=== PATIENT | male | born 1960 | race Caucasian/White ===

== ENCOUNTER 2022-08-07 00:08 | Day surgery (SDC) | payer BC, SELFPAY ==
[2022-07-31 13:35] VITALS: BMI 29.6
--- NOTE | 2022-08-04 12:24 | PM.HPGS ---
History of Present Illness History of Present Illness Consent: Risks, benefits, and alternatives have been discussed and questions answered. Patient agrees to proceed with procedure. Chief complaint: neoplasm screening Narrative: Dean Law is a 61 year old male Referred for colon cancer screening. His last colonoscopy was About 10 years ago. Review of Systems Review of Systems: All systems reviewed & are unremarkable except as noted in HPI and below PMFSH Past Medical History Medical History BMI 29.0-29.9,adult Gastroenteritis Postoperative surgical complication involving digestive system Surgical History Surgical History History of hernia repair Family History Family History Grandparent Carcinoma of colon Father Acute myocardial infarction Social History Social History Smoking status: Never smoker Alcohol intake: current Substance use: never Substance use type: does not use Living arrangements: with family Spiritual care concerns: No Meds Home Medications and Allergies Home Medications Medication Instructions Recorded Confirmed Type losartan 25 mg tablet 25 mg PO DAILY 12/02/20 08/07/22 History metoprolol tartrate 25 mg tablet 12.5 mg PO BID 12/02/20 08/07/22 History clopidogrel 75 mg tablet 75 mg PO DAILY 03/10/21 08/07/22 History ibuprofen 800 mg tablet 800 mg PO TID PRN pain #90 tabs 05/03/22 08/07/22 Rx pregabalin 150 mg capsule 300 mg PO BID 30 days #120 caps 05/15/22 08/07/22 Rx alirocumab 150 mg/mL subcutaneous 150 mg subcut [id number] 07/31/22 08/07/22 History pen injector (Praluent Pen) Allergies Allergy/AdvReac Type Severity Reaction Status Date / Time Ypewgrt-JJZ-BvI Reductase AdvReac Intermediate Elevated CK Verified 08/07/22 06:50 Inhibitor [Wnlzpgn-Jrq-Bjd Reductase Inhibitor] Exam Resp: Auscultation: clear to auscultation bilaterally Cardio: Rate: regular rate Rhythm: regular rhythm GI: GI Palp: Yes Soft to palpation and No Tenderness to palpation present (GI) Assessment and Plan Assessment and plan (1) Screening for colon cancer: Code(s): Z12.11 - Encounter for screening for malignant neoplasm of colon Status: Acute
[2022-08-07 06:52] VITALS: BP 123/83; PULSE 44; RESP 18; TEMP 36.1; O2SAT 100; BMI 30.2
[2022-08-07] MEDS: LACTATED RINGERS 1,000 ML 150 ML IV CONT (07:12)
--- NOTE | 2022-08-07 07:34 | WPDANESEPPF ---
Anes - Initial Pre Proc Eval Procedure: Operation Date: 08/07/22 08:00 Proposed Procedures p Screening Colonoscopy - Reggie Green MD Date/Time: 08/07/22 07:34 Surgeon: Reggie Green MD Pre Op Diagnosis: neoplasm screening Patient Data Age: 61 Gender: M Height: 1.75 m Weight: 92.8 kg Last Vital Signs Temp 97.0 F L 08/07/22 06:52 Pulse 44 L 08/07/22 06:52 Resp 18 08/07/22 06:52 BP 123/83 08/07/22 06:52 Pulse Ox 100 08/07/22 06:52 O2 Del Method Room Air 08/07/22 06:52 Allergies Allergy/AdvReac Type Severity Reaction Status Date / Time Rxterba-ZDV-FxX Reductase AdvReac Intermediate Elevated CK Verified 08/07/22 06:50 Inhibitor [Iwnkfer-Vym-Nct Reductase Inhibitor] Home Medications Medication Instructions Recorded Confirmed Type losartan 25 mg tablet 25 mg PO DAILY 12/02/20 08/07/22 History metoprolol tartrate 25 mg tablet 12.5 mg PO BID 12/02/20 08/07/22 History clopidogrel 75 mg tablet 75 mg PO DAILY 03/10/21 08/07/22 History ibuprofen 800 mg tablet 800 mg PO TID PRN pain #90 tabs 05/03/22 08/07/22 Rx pregabalin 150 mg capsule 300 mg PO BID 30 days #120 caps 05/15/22 08/07/22 Rx alirocumab 150 mg/mL subcutaneous 150 mg subcut [id number] 07/31/22 08/07/22 History pen injector (Praluent Pen) Patient hx anesthesia problems: none Family hx anesthesia problems: none Results Review: All pre-operative results and documents have been reviewed as part of the pre-operative evaluation. [facility] Past Medical History Medical History BMI 29.0-29.9,adult Gastroenteritis Postoperative surgical complication involving digestive system Surgical History Surgical History History of hernia repair Family History Family History Grandparent Carcinoma of colon Father Acute myocardial infarction Social History Social History Smoking status: Never smoker Alcohol intake: current Substance use: never Substance use type: does not use Living arrangements: with family Spiritual care concerns: No Anes - Eval Final PreProcedure Day of Procedure 08/07/22 07:34 Patient weight: obese Heart: regular rate and rhythm Lungs: clear to auscultation Airway: Mallampati scale class II Neurological: alert and oriented Last oral intake: >/= 8 hours ASA classification: III Emergent: no Anesthetic plan: proceed Anesthesia type and monitoring: general GIVS and standard monitoring Results Review: All pre-operative results and documents have been reviewed as part of the pre-operative evaluation. Informed Consent: The patient's anesthetic plan and its attendant risks and benefits were discussed with the patient/family/POA. Questions were solicited and answers provided to the satisfaction of the patient/family/POA.
[2022-08-07 08:13] VITALS: BP 89/44; PULSE 44; RESP 18; O2SAT 100
[2022-08-07 08:23] VITALS: BP 96/55; PULSE 45; RESP 18; O2SAT 100
[2022-08-07 08:33] VITALS: BP 108/60; PULSE 50; RESP 18; O2SAT 100
== END 2022-08-07 08:43 | disposition home or self-care (01) ==
PROVIDERS: PCP Family Medicine; Visit Provider Internal Medicine Gastroenterology
PROC: 0DJD8ZZ Inspection of Lower Intestinal Tract, Via Natural or Artificial Opening Endoscopic (ICD-10-PCS; CPT 45378; principal; 2022-08-07 08:00)
DX: Z12.11 Encounter for screening for malignant neoplasm of colon (principal); E66.9 Obesity, unspecified; Z68.30 Body mass index [BMI] 30.0-30.9, adult
CPT/HCPCS: 45378; J2704; J7120

== ENCOUNTER 2024-10-21 14:30 | Outpatient (CLI) | payer BC, SELFPAY ==
--- NOTE | ~2024-10-21 | XR_ITS ---
XR chest 2V 10/21/2024 14:51 Indication: Dyspnea Procedure: 2 view chest Comparison: 08/05/2013 Findings: Focal nodular opacity left lower thorax. Heart size normal. Right lung clear. No focal pneu monia, pleural effusion or pneumothorax. Spinal stimulator leads are noted. Impression: 1: Focal nodular opacity left lower thorax. Correlation with CT chest recommended to exclude parenchy mal nodule. Reviewed, dictated and finalized at location B. ITECTURE DRAFTER Impression: 1: Focal nodular opacity left lower thorax. Correlation with CT chest recommend ed to exclude parenchymal nodule.
== END 2024-10-21 14:31 | disposition home or self-care (01) ==
LOC: GOSHIMG 14:31
PROVIDERS: PCP Nurse Practitioner Adult Health; Visit Provider Nurse Practitioner Adult Health
DX: R91.1 Solitary pulmonary nodule (principal); R09.89 Other specified symptoms and signs involving the circulatory and respiratory systems
CPT/HCPCS: 71046

== ENCOUNTER 2024-11-11 09:21 | Outpatient (CLI) | payer BC, SELFPAY ==
--- NOTE | ~2024-11-11 | CT_ITS ---
CT Scan of the Chest without Contrast: Clinical Indication: Abnormal chest x-ray, possible left basilar pulmonary nodule Technique: Contiguous sections were acquired throughout the chest without intravenous contrast. Dose reduction technique was used on this scan by utilizing automated exposure control and iterative recon struction technique. The dose-length product (DLP) was 380.26 mGy-cm. Findings: There is no evidence of any significant mediastinal, hilar or axillary lymphadenopathy. There are ext ensive atherosclerotic calcifications of the coronary arteries. There is no evidence of pleural or pericardial effusion. Calcified left lower lobe granuloma present. Lungs are otherwise clear. Images through the upper abdomen reveal no abnormalities. Impression: Calcified left lower lobe granuloma, otherwise clear lungs. Reviewed, dictated and finalized at location . TION SPECIALIST Impression: Calcified left lower lobe granuloma, otherwise clear lungs.
--- OUTSIDE RECORDS SUMMARY | 2024-11-11 09:47 | XMS_ITS | Clinical Summary ---
Author Organization [facility] al Address [address] [place] [address] Care Team Providers Care Link Fabric Machine Operator Name Role Phone Drake Persaud MD Primary Care Provider + [phone] Allergies No known active allergies Medications ibuprofen (ADVIL,MOTRIN) 200 mg tab/cap Take 2 tablet/capsule (400 mg total) by mouth every 8 (eight) hours as needed for pain Active pregabalin (LYRICA) 150 mg capsuleIndicati ons:neuropathic pain Take 2 capsules (300 mg total) by mouth 2 (two) times a day 120 capsule 1 Active ezetimibe (ZETIA) 10 mg tablet Take 1 tablet (10 mg total) by mouth daily Active Praluent Pen 150 mg/mL pen injector INJECT 150MG(1 PEN) UNDER THE SKIN EVERY 14 DAYS 6 mL 1 3 Active Additional Information Patient not taking.Reported on 04/11/2023 inclisiran (LEQVIO) 284 mg/1.5 mL syringe Inject 1.5 mL (284 mg total) under the skin every 6 (six) months Active losartan (COZAAR) 25 mg tablet TAKE 1 TABLET(25 MG) BY MOUTH DAILY 90 tablet 3 4 Active metoprolol tartrate (LOPRESSOR) 25 mg immediate release tablet TAKE 1/2 TABLET(12.5 MG) BY MOUTH TWICE DAILY 90 tablet 3 4 Active Active Problems Problem Noted Date Diagnosed Date Other hyperlipidemia 04/11/2023 CAD (coronary artery disease) 03/03/2021 Chronic prescription opiate use 09/26/2019 Inguinal pain 04/13/2015 Neuralgia 02/02/2014 Ilioinguinal neuralgia 02/02/2014 Chronic pain 02/02/2014 Abdominal pain 11/27/2013 Never smoked tobacco 07/27/2010 Abdominal hernia 05/16/2010 STEMI (ST elevation myocardial infarction) Encounters Date Type Department Care Team Description 10/29/2024 11:45 AM GLOBAL SAFETY OFFICER Office Visit [place] [employer] [address] [place] [phone] Yuki Segura MD Coronary artery disease involving [place] coronary artery of [place] heart, unspecified whether angina present (Primary Dx); ST elevation myocardial infarction (STEMI), unspecified artery (HCC); Dyslipidemia 09/15/2024 Telephone [place] [employer] [facility] [address] [place] [phone] Savanah Mcgraw MA from Last 3 Months Surgical History Surgery Date Site/Laterality Comments NH UNLISTED PROCEDURE ABDOMEN PERITONEUM & OMENTUM Hernia Repair - (Added by TW Conv) HERNIA MESH REMOVAL 10/15/2009 - 10/14/2010 ABDOMINAL SURGERY 10/15/2011 - 10/14/2012 abd pain nerve SPINAL CORD STIMULATOR IMPLANT Medical History Medical History Date Comments Hyperlipidemia Chronic pain Groin pain CAD (coronary artery disease) Family History Medical History Relation Name Comments Colon cancer Nephew Relation Name Status Comments Nephew Other Age 38 Social History Tobacco Use Types Packs/Day Years Used Date Smoking Tobacco: Never Smokeless Tobacco: Never Tobacco Cessation:Counseling Given: Not Answered Alcohol Use Standard Drinks/Week Comments No 0 (1 standard drink = 0.6 oz pur e alcohol) Sex and Gender Information Value Date Recorded Sex Assigned at Not on file Legal Sex Male 9:50 PM GLOBAL SAFETY OFFICER Gender Identity Not on file Sexual Orientation Not on file Obstetrics History Last Filed Vital Signs Vital Sign Reading Time Taken Comments Blood Pressure 114/62 10/29/2024 11:11 AM GLOBAL SAFETY OFFICER Pulse 59 10/29/2024 11:11 AM GLOBAL SAFETY OFFICER Temperature 36.9 ??C (98.4 ??F) 04/06/2021 12:07 PM C DT Respiratory Rate 16 10/29/2024 11:11 AM GLOBAL SAFETY OFFICER Oxygen Saturation 96% 10/29/2024 11:11 AM GLOBAL SAFETY OFFICER Inhaled Oxygen Concentration - - Weight 97.5 kg (215 lb) 10/29/2024 11:11 AM GLOBAL SAFETY OFFICER Height 175.3 cm (5' 9 ) 10/24/2023 9:38 AM GLOBAL SAFETY OFFICER Body Mass Index 31.75 10/24/2023 9:38 AM GLOBAL SAFETY OFFICER Plan of Treatment Health Maintenance Due Date Last Done Comments Colon Cancer Screening-Colonoscopy 1960 Depression Screening 1960 Hepatitis C Screening 1960 Prostate Cancer Screening-PSA 1960 DTaP/Tdap/Td Vaccine (1 - Tdap) 12/16/1971 Hepatitis B Screening 1978 Regular Well Visit/Exam 18-64 1978 Zoster Vaccine (1 of 2) 2010 Influenza Vaccine (#1) 2024 5, 07/08/2014, 07/02/2013 Pneumococcal vaccine <65 Aged Out No longer eligible based on patient's age to complete this topic Goals Goal Patient Goal Type Associated Problems Recent Progress Patient-Stated? Author CCM Chronic Pain Care Plan Chronic Care Management No change(05/21 12:34 PM CDT) No Annie Choi, [place] Note: Problem: Chronic Pain Goals: 1. Minimize further functional decline 2. Maximize quality of life 3. Control pain Strategies: - Activity/exercise program recommendation - Conservative stepwise pain medicine strategy with multi-disciplinary approach - Recommend healthy lifestyle strategies and compensatory methods as needed Medical Devices Implanted Type Area Lead Designer Device Identifier Shelf Expiration Date Model / Serial / Lot Orthofix Spinal Implants [id number] Hallmark 4.1mm 16mm Primary Constrain Color Coded Spine Cervical - [id number] - [id number] Implanted:Qty: 1 on 09/19/2018 by Marvel Garzon MD at [facility] N/A: Back Orthofix Spinal Implants 08/26/2020 [id number] / [id number] / [id number] Generator Implantable Pulse Wavewriter Ipg - [id number] - [id number] Implanted:Qty: 1 on 09/19/2018 by Marvel Garzon MD at [facility] N/A: Back [employer] [id number] / [id number] / Medtronic Usa [employer] X [id number] Resolute [place] 3mm 2.1-2.7fr 26mm 140cm Rapid Exchange Radiopaque - [id number] Implanted:Qty: 1 on 11/26/2020 by Yuki Segura MD at [facility] Medtronic Inc [id number] / / Daig Fabio [id number] Device Closure Angio-Seal Vip Bondek-Plus Polyglyd L70 Cm Od6 Fr Odsec.035 In Vascular - [id number] Implanted:Qty: 1 on 11/26/2020 by Yuki Segura MD at [facility] [employer] [id number] / / Implanted - Out of Service Type Area Lead Designer Device Identifier Shelf Expi ration Date Model / Serial / Lot Scs Back Procedures Procedure Name Priority Date/Time Associated Diagnosis Comments ECG 12-LEAD Routine 10/29/2024 11:[address]LOBAL SAFETY OFFICER [address] elevation myocardial infarction (STEMI), unspecified artery (HCC) from Last 3 Months Results * ECG 12 lead (10/29/2024 11:11 AM GLOBAL SAFETY OFFICER) Yuki Segura MD ECG ORDERABLES Final Result from Last 3 Months Insurance MARIOLA PREFERRED ANTHEM ACCESS Advance Directives For more information, please contact: [phone] * Full Code (Latest Code Status on File) Date Activated Date Inactivated Comments 11/27/2020 10:26 AM 11/28/2020 3:14 PM * Comfort Care Only - DO NOT Resuscitate Date Activated Date Inactivated Comments 11/27/2020 9:25 AM 11/27/2020 10:26 AM * Full Code Date Activated Date Inactivated Comments 11/26/2020 2:57 PM 11/27/2020 9:25 AM Healthcare Agents on File Name Relationship Healthcare Agent Relationshi p Communication Milena Kim Other First Alternate Health Care Agent Care Teams Link Fabric Machine Operator Relationship Specialty Start Date End Date Drake Persaud MD PCP - General 01/15/17
--- OUTSIDE RECORDS SUMMARY | 2024-11-11 09:47 | XMS_ITS | Continuity of Care Document ---
Author Organization [facility] Address [address] [place] [address] [place] [address] Phone Care Team Providers Care Hardness Tester Name Role Phone John Mitchell Unavailable Unavailable Procedures Procedure Date Office Consultation Advance Directives Directive Yes / No Effective Date File Name No Information Encounters Encounter Description Practice Location Reason(s) For Visit Diagnoses Date Provider Providers Copied on Encounter Office Consultation [facility], [address], [place], [place], [id number], [place] tel:[phone] [facility] No Information [address] [place], [address], [place]. tel:[phone] Referring Provider: Drake Persaud MD , [address] [place] [address], [facility]. tel:[phone] Family History Family Member Type Diagnosis Age At Onset No Information Payers Payer name Insurance type Covered libertarian ID Authorirama jessicamanuela(s) [facility] [id number] Social History Type Description Quantity Date Captured Comments Sex Male Smoking Status No Information Chief Complaint And Reason For Visit No Information Reason For Referral Reason For Referral No Information History Of Present Illness Encounter Date Complaint History Of Prese nt Illness No Information Functional Status Date Functional Assessmen t No Information Instructions Date Instruction Additional Infor mation No Information Assessments Type Assessment Date No Information Patient Care Teams Name Effective Dates (start - stop) Status Members No Information
--- OUTSIDE RECORDS SUMMARY | 2024-11-11 09:47 | XMS_ITS | Referral Summary ---
Author Organization [facility] al Address [address] [place] [address] Care Team Providers Care Sales Property Manager Name Role Phone Drake Persaud MD Primary Care Provider + [phone] Encounters Date Type Department Care Team Description 10/29/2024 11:45 AM GLASS FORMING ENGINEER Office Visit [employer] [address] [place] [phone] Yuki Segura MD Coronary artery disease involving [place] coronary artery of [place] heart, unspecified whether angina present (Primary Dx); ST elevation myocardial infarction (STEMI), unspecified artery (HCC); Dyslipidemia 09/15/2024 Telephone [employer] [address] [place] [phone] Savanah Mcgraw MA from Last 3 Months Allergies No known active allergies Medications ibuprofen [...] hernia 05/16/2010 STEMI (ST elevation myocardial infarction) Social History Tobacco Use Types Packs/Day Years Used Date Smoking Tobacco: Never Smokeless Tobacco: Never Tobacco Cessation:Counseling Given: Not Answered Alcohol Use Standard Drinks/Week Comments No 0 (1 standard drink = 0.6 oz pur e alcohol) Sex and Gender Information Value Date Recorded Sex Assigned at Not on file Legal Sex Male 9:50 PM GLASS FORMING ENGINEER Gender Identity Not on file Sexual Orientation Not on file Last Filed Vital Signs Vital Sign Reading Time Taken Comments Blood Pressure 114/62 10/29/2024 11:11 AM GLASS FORMING ENGINEER Pulse 59 10/29/2024 11:11 AM GLASS FORMING ENGINEER Temperature 36.9 ??C (98.4 ??F) 04/06/2021 12:07 PM C DT Respiratory Rate 16 10/29/2024 11:11 AM GLASS FORMING ENGINEER Oxygen Saturation 96% 10/29/2024 11:11 AM GLASS FORMING ENGINEER Inhaled Oxygen Concentration - - Weight 97.5 kg (215 lb) 10/29/2024 11:11 AM GLASS FORMING ENGINEER Height 175.3 cm (5' 9 ) 10/24/2023 9:38 AM GLASS FORMING ENGINEER Body Mass Index 31.75 10/24/2023 9:38 AM GLASS FORMING ENGINEER Plan of Treatment Not on file Goals Goal Patient Goal Type Associated Problems Recent Progress Patient-Stated? Author CCM Chronic Pain Care Plan Chronic Care Management No change(05/21 12:34 PM CDT) No Annie Choi, RN Note: Problem: Chronic Pain Goals: 1. Minimize further functional decline 2. Maximize quality of life 3. Control pain Strategies: - Activity/exercise program recommendation - Conservative stepwise pain medicine strategy with multi-disciplinary approach - Recommend healthy lifestyle strategies and compensatory methods as needed Medical Devices Implanted Type Area Prison Psychiatrist Device Identifier Shelf Expiration Date Model / Serial / Lot Orthofix Spinal Implants [id number] Hallmark 4.1mm 16mm Primary Constrain Color Coded Spine Cervical - [id number] - [id number] Implanted:Qty: 1 on 09/19/2018 by Marvel Garzon MD at [facility] N/A: Back Orthofix Spinal Implants 08/26/2020 [id number] / [id number] / [id number] Generator Implantable Pulse Wavewriter Ipg - [id number] - [id number] Implanted:Qty: 1 on 09/19/2018 by Marvel Garzon MD at [facility] N/A: Back [employer] [id number] / [id number] / Medtronic Usa Inc X [id number] Resolute [place] 3mm 2.1-2.7fr 26mm 140cm Rapid Exchange Radiopaque - [id number] Implanted:Qty: 1 on 11/26/2020 by Yuki Segura MD at [facility] Medtronic Inc [id number] / / Daig Fabio [id number] Device Closure Angio-Seal Vip Bondek-Plus Polyglyd L70 Cm Od6 Fr Odsec.035 In Vascular - [id number] Implanted:Qty: 1 on 11/26/2020 by Yuki Segura MD at [facility] [employer] [id number] / / Implanted - Out of Service Type Area Prison Psychiatrist Device Identifier Shelf Expi ration Date Model / Serial / Lot Scs Back Procedures Procedure Name Priority Date/Time Associated Diagnosis Comments ECG 12-LEAD Routine 10/29/2024 11:[address] elevation myocardial infarction (STEMI), unspecified artery (HCC) from Last 3 Months Results * ECG 12 lead (10/29/2024 11:11 AM GLASS FORMING ENGINEER) Yuki Segura MD ECG ORDERABLES Final Result from Last 3 Months Insurance ANTH PREFERRED ANTH ACCESS Advance Directives For more information, please contact: [phone] * Full Code (Latest Code Status on [...] First Alternate Health Care Agent Care Teams Sales Property Manager Relationship Specialty Start Date End Date Drake Persaud MD PCP - General 01/15/17
--- OUTSIDE RECORDS SUMMARY | 2024-11-11 09:47 | XMS_ITS | Encounter Summary ---
Author Organization [facility] Healthcare Address [address] [place] [address] Care Team Providers Care Jigger Operator Name Role Phone Drake Persaud MD Primary Care Provider + [phone] Reason for Visit * Reason Onset Date Comments Med Refill 11/25/2019 Encounter Details Date Type Department Care Team (Late st Contact Info) Description 11/25/2019 Telephone [facility] [place] [facility] [address] [facility] [address] [place] [address] Marvel Garzon MD [address] [place] [address], [place] [phone] Med Refill Social History Tobacco Use Types Packs/Day Years Used Date Smoking Tobacco: Never Smokeless Tobacco: Never Alcohol Use Standard Drinks/Week Comments No 0 (1 standard drink = 0.6 oz pur e alcohol) Sex and Gender Information Value Date Recorded Sex Assigned at Not on file Legal Sex Male 9:50 PM INSPECTOR [employer] Gender Identity Not on file Sexual Orientation Not on file documented as of this encounter Plan of Treatment Not on file documented as of this encounter Goals Goal Patient Goal Type Associated Problems Recent Progress Patient-Stated? Author CCM Chronic Pain Care Plan Chronic Care Management No change(05/21 12:34 PM CDT) No Annie Choi RN Note: Problem: Chronic Pain Goals: 1. Minimize further functional decline 2. Maximize quality of life 3. Control pain Strategies: - Activity/exercise program recommendation - Conservative stepwise pain medicine strategy with multi-disciplinary approach - Recommend healthy lifestyle strategies and compensatory methods as needed documented as of this encounter Visit Diagnoses Not on filedocumented in this encounter Care Teams Jigger Operator Relationship Specialty Start Date End Date Drake Persaud MD PCP - General 01/15/17 documented as of this encounter
== END 2024-11-11 09:22 | disposition home or self-care (01) ==
PROVIDERS: PCP Nurse Practitioner Adult Health; Visit Provider Nurse Practitioner Family
DX: R93.89 Abnormal findings on diagnostic imaging of other specified body structures (principal); J98.4 Other disorders of lung
CPT/HCPCS: 71250

== ENCOUNTER 2024-11-30 15:23 | Emergency (ER) | payer BC, SELFPAY ==
--- NOTE | ~2024-11-30 | XR_ITS ---
EXAMINATION: XR chest 2V DATE: 11/30/2024 15:46 INDICATION: Cough, wheezing and blood in sputum TECHNIQUE: frontal and lateral views of the chest were obtained. COMPARISON: 10/21/[address] dated 11/03/2024 FINDINGS: Unchanged nodular opacity left lung base which correspond to a curved band of discoid atelectasis/sca rring in the lingula on the CT imaging. Lungs remain otherwise clear with no other airspace opacities , pulmonary edema, pleural effusion or pneumothorax. The cardiomediastinal silhouette is normal. Ther e are a pair of spinal stimulator leads project over the posterior aspect of the central canal the lo wer thoracic spine. IMPRESSION: 1. No acute cardiopulmonary disease. Reviewed, dictated and finalized at location [facility]
--- NOTE | 2024-11-30 15:24 | ED.URI ---
HPI - URI/Sore Throat General Chief Complaint: Upper Respiratory Infection Stated Complaint: Cough Time Seen by Provider: 11/30/24 15:24 Source: patient Mode of arrival: ambulatory Limitations: no limitations History of Present Illness HPI Narrative: Dean is a 63-year-old male patient presenting to the clinic today with complaints of cough, nasal congestion, and chest congestion x1 day. He reports he is coughing up mucus with some streaks of blood. States he had a low-grade fever. He does report he feels short of breath. No history of smoking. Denies any chest pain. History of diabetes, STEMI, CAD, hyperlipidemia. MD elicited complaint: sore throat and nasal congestion Related Data Home Medications ?Medication ?Instructions ?Recorded ?Confirmed ?Last Taken ?Type losartan 25 mg tablet 25 mg PO DAILY 12/02/20 11/30/24 Unknown History metoprolol tartrate 25 mg tablet 12.5 mg PO BID 12/02/20 11/30/24 Unknown History Allergies Allergy/AdvReac Type Severity Reaction Status Date / Time [id number] Reductase AdvReac Intermediate Elevated CK Verified 11/30/24 15:30 Inhibitor (Kyvruqk-Pen-Dyq Reductase Inhibitor) Review of Systems Review of Systems: Pertinent positives per HPI. Patient denies any fever, chills, rash, headache, visual changes, dizziness, chest pain, palpitations, nausea, vomiting, diarrhea, constipation, abdominal pain, or any urinary issues. [facility] Past Medical History Medical History Bronchitis Bibasilar crackles Diabetes mellitus Coronary artery disease Sinusitis STEMI (ST elevation myocardial infarction) Gastroenteritis Postoperative surgical complication involving digestive system Hyperlipidemia Surgical History Surgical History History of hernia repair Family History Family History Grandparent Carcinoma of colon Father Acute myocardial infarction Social History Social History Smoking status: Never smoker Alcohol intake: current Substance use: never Substance use type: does not use Do You Feel Safe in your Home?: Yes Lack of Transportation: No Lack of Food: Never True Current Housing: I Have Housing Concerned About Future Housing: No Difficulty Paying Gas/Electric Bills: No Difficulty Paying for Meds: No Currently Unemployed: No Difficulty w/ Childcare or Family Care: No Living arrangements: with family Spiritual care concerns: No Comments At the time of my signature, I reviewed and agree with the nursing past medical, surgical, social, and family history. There is no relevant family history pertinent to the patient complaint. Exam Narrative: General: Well-developed, well nourished, in no apparent distress Head: Normocephalic, atraumatic Eyes: Pupils equally round and reactive to light bilaterally, EOM intact, sclera and conjunctive clear, no discharge, lids normal Ears: TMs intact and clear, ear canals clear, no drainage, grossly hearing normal. Nose: Nares patent, clear nasal discharge, no inflammation, no sinus tenderness. Mouth: Oral pharynx without lesions or masses, good dentition, MMM. Neck: Supple, trachea midline, no enlargement of anterior or posterior cervical nodes, no thyroid masses or goiter palpable. Cardio: Regular rate and rhythm, s1 and s2 normal, no murmur appreciated. Resp: Wheezing over the left upper lobe posteriorly, no rhonchi, rales, or rubs Course Course Emergency Course: Portions of this record may have been created with voice recognition software. Level of Care: Express Care Visit Vital Signs Vital signs: Vital Signs Temperature 37.7 C H 11/30/24 15:36 Pulse Rate 80 11/30/24 15:36 Respiratory Rate 16 11/30/24 15:36 Blood Pressure 136/86 11/30/24 15:36 Pulse Oximetry 97 11/30/24 15:36 Temperature 37.7 C H 11/30/24 15:36 Pulse Rate 80 11/30/24 15:36 Respiratory Rate 16 11/30/24 15:36 Blood Pressure 136/86 11/30/24 15:36 Pulse Oximetry 97 11/30/24 15:36 Vital signs reviewed MDM - URI/Sore Throat MDM Narrative Medical decision making narrative: At the time of visit patient is resting comfortably on the exam table. Patient appears to be nontoxic. Labs: COVID and influenza testing was negative. Diagnostics: Chest x-rays negative for any acute cardiopulmonary process. Plan: I suspect patient has bronchitis. Prescription for azithromycin and albuterol inhaler was sent to the pharmacy. Supportive measures were discussed with the patient and they voiced understanding discharge instructions and agrees to treatment plan. Return precautions reviewed Differential Diagnosis Differential diagnosis: Likely upper respiratory infection, otitis media, sinusitis, viral infection, bronchitis, influenza, pharyngitis and other (COVID) Lab Data Labs: Lab Results 11/30/24 Range/Units 15:57 POC Influenza A Ag Negative (Negative) POC Influenza B Ag Negative (Negative) POC SARS CoV-2 Ag Negative (Negative) Discharge Plan Discharge Clinical Impression: Bronchitis Patient Disposition: Home, Self-Care Condition: Stable Instructions: Antibiotic Form, Acute Bronchitis (ED) Additional Instructions: Chest x-ray is negative for any acute cardiopulmonary process. COVID and influenza testing negative in the clinic today. Take prescription medications only as prescribed-albuterol inhaler and azithromycin Increase fluids and stay well hydrated Tylenol/motrin for pain/fever Flonase and OTC antihistamines as directed Vicks vapor rub to open sinuses Sinus rinses for congestion Cepacol spray, cough drops, throat lozenges, warm tea with honey/lemon, gargle salt water to soothe throat BRAT diet for diarrhea Clear liquids x 24 hours then advance as tolerated for nausea/vomiting Go to the ED if you develop a worsening in your condition- high fever not controlled by Tylenol or Motrin, dehydration, weakness, lethargy, shortness of breath, or chest pain. Follow up with your PCP in 3-5 days if symptoms persist. Patient Language: Setswana Prescriptions: New azithromycin 250 mg tablet See Rx Instructions .ROUTE .COMPLEX Qty: 6 0RF Rx Instructions: For 250 mg dose pack: take 500 mg today (day 1), then 250 mg for 4 days (days 2-5) albuterol sulfate 90 mcg/actuation HFA aerosol inhaler 2 puff inhalation Q4-6H PRN (Reason: shortness of breath or wheezing) 30 Days Qty: 8.5 0RF No Action losartan 25 mg tablet 25 mg PO DAILY metoprolol tartrate 25 mg tablet 12.5 mg PO BID aspirin 81 mg tablet,delayed release (DR/EC) 81 mg PO DAILY Qty: 1 0RF Rx Instructions: cardio manages dapagliflozin propanediol 10 mg tablet 10 mg PO DAILY Qty: 30 6RF pregabalin 150 mg capsule 300 mg PO BID 30 Days Qty: 120 3RF Repatha SureClick 140 mg/mL pen injector 140 mg subcut .q2wk Qty: 2 0RF ibuprofen 800 mg tablet See Rx Instructions .ROUTE .COMPLEX Qty: 90 0RF Dose Instruction: TAKE 1 TABLET BY MOUTH THREE TIMES DAILY NEEDED FOR PAIN Rx Instructions: TAKE 1 TABLET BY MOUTH THREE TIMES DAILY NEEDED FOR PAIN Follow-up/Referrals: Drake Persaud MD [Primary Care Provider] - Time of Disposition: 16:15 Quality NIHSS Nursing Documentation ED NIHSS nursing documentation: reviewed/agree
[2024-11-30 15:36] VITALS: BP 136/86; PULSE 80; RESP 16; TEMP 37.7; O2SAT 97
[2024-11-30 15:59] LABS: EDCOVIDSCREEN Negative (Negative); EDINFLUASCREEN Negative (Negative); EDINFLUBSCREEN Negative (Negative)
== END 2024-11-30 16:20 | disposition home or self-care (01) ==
PROVIDERS: Emergency Provider Nurse Practitioner Family; PCP Family Medicine
DX: J40 Bronchitis, not specified as acute or chronic (principal); Z20.822 Contact with and (suspected) exposure to COVID-19; I25.10 Atherosclerotic heart disease of native coronary artery without angina pectoris; E11.9 Type 2 diabetes mellitus without complications; Z79.84 Long term (current) use of oral hypoglycemic drugs; I25.2 Old myocardial infarction; E78.5 Hyperlipidemia, unspecified; Z79.82 Long term (current) use of aspirin
CPT/HCPCS: 71046; 87426; 87804; 99213; G0463

== ENCOUNTER 2025-06-04 09:51 | Outpatient (CLI) | payer BC, SELFPAY ==
--- NOTE | ~2025-06-04 | XR_ITS ---
Left Knee Technique: AP, lateral, and sunrise views were obtained. Clinical History: Pain Findings: No fracture or dislocation is seen. Osseous alignment is anatomic. Joint spaces are preserved without degenerative or erosive change. Soft tissues are unremarkable. No joint effusion is seen. Impression: Unremarkable left knee radiographs. Reviewed, dictated and finalized at [facility]. Impression: Unremarkable left knee radiographs.
--- NOTE | ~2025-06-04 | XR_ITS ---
Right Knee Technique: AP, lateral, and sunrise views were obtained. Clinical History: Pain Findings: No fracture or dislocation is seen. Osseous alignment is anatomic. Joint spaces are preserved without degenerative or erosive change. Soft tissues are unremarkable. No joint effusion is seen. Impression: Unremarkable right knee radiographs. Reviewed, dictated and finalized at [facility]. Impression: Unremarkable right knee radiographs.
== END 2025-06-04 09:52 | disposition home or self-care (01) ==
LOC: GOSHIMG 09:52
PROVIDERS: PCP Family Medicine; Visit Provider Nurse Practitioner Adult Health
DX: M25.561 Pain in right knee (principal); M25.562 Pain in left knee
CPT/HCPCS: 73562